=== PATIENT | female | born 1990 | race Caucasian/White ===

== ENCOUNTER 2017-11-28 10:15 | Inpatient (IN) | payer OTHER ==
[~2017-11-28] VITALS: Ht 165.1 cm; Wt 103.0 kg
[2017-11-28] VITALS (7 sets, daily range): BP systolic 99–117; BP diastolic 52–73
[~2017-11-28 10:15] MED LIST: FERREX 28 TABL1 EACH PO; PRENATAL TABLE1 EAC3 PO; VIBRAMYCIN100 MG PO
[2017-11-28 12:42] LABS: BASOPHIL (%) 0.2 % (0-1); EOSINOPHIL (%) 0.8 % (0-5); EOSINOPHIL COUNT 0.1 K/uL (0-0.3); HEMATOCRIT 36.2 % (36.0-46.0); HEMOGLOBIN 11.4 G/DL (11.9-15.5); IMMATURE GRANULOCYTE (%) 0.7 % (0.0-0.7); LYMPHOCYTE (%) 15.9 % (15-42); LYMPHOCYTE COUNT 1.6 K/uL (1.0-2.8); MCH 25.7 PG (29.0-34.0); MCHC 31.5 G/DL (30.0-36.0); MCV 81.7 FL (83-99); MONOCYTE (%) 4.9 % (3-12); MONOCYTE COUNT 0.5 K/uL (0-0.8); NEUTROPHIL (%) 77.5 % (45-76); NEUTROPHIL COUNT 7.7 K/uL (1.8-6.4); PLATELET COUNT 174 K/uL (156-360); RBC DIS.WIDTH-CV 15.4 % (11.8-14.6); RBC DIS.WIDTH-SD 45.8 % (39-53); RED BLOOD COUNT 4.43 M/uL (3.80-5.20); WHITE BLOOD COUNT 9.9 K/uL (4.1-10.2)
[2017-11-29 02:03] VITALS: BP 113/56
[2017-11-29 06:05] LABS: BASOPHIL (%) 0.2 % (0-1); EOSINOPHIL (%) 0.1 % (0-5); HEMOGLOBIN 9.7 G/DL (11.9-15.5); IMMATURE GRANULOCYTE (%) 0.7 % (0.0-0.7); LYMPHOCYTE (%) 16.4 % (15-42); LYMPHOCYTE COUNT 2.2 K/uL (1.0-2.8); MCH 26.4 PG (29.0-34.0); MCHC 32.3 G/DL (30.0-36.0); MCV 81.5 FL (83-99); MONOCYTE COUNT 0.7 K/uL (0-0.8); NEUTROPHIL (%) 77.6 % (45-76); NEUTROPHIL COUNT 10.5 K/uL (1.8-6.4); PLATELET COUNT 158 K/uL (156-360); RBC DIS.WIDTH-CV 15.6 % (11.8-14.6); RED BLOOD COUNT 3.68 M/uL (3.80-5.20); WHITE BLOOD COUNT 13.5 K/uL (4.1-10.2)
[2017-11-29 07:18] VITALS: BP 89/53
[2017-11-29 11:04] VITALS: BP 93/50
[2017-11-29 15:03] VITALS: BP 97/53
[2017-11-30 07:00] VITALS: BP 103/59
[2017-11-30 11:30] VITALS: BP 106/68
[2017-11-30 15:00] VITALS: BP 109/65
[2017-11-30 23:13] VITALS: BP 119/67
[2017-12-01 07:34] VITALS: BP 101/64
[2017-12-01] MEDS ORDERED: IBUPROFEN800 MG PO (11:55)
[2017-12-01] MEDS ORDERED: HYDROCODON-ACE1 EAC7 PO (11:55)
== END 2017-12-01 13:45 | disposition home or self-care (01) | DRG 765 ==
LOC: 2SOUTH 10:15 → 2WEST 11:10 → 2SOUTH 14:13 → 2WEST 12-01 13:45
PROVIDERS: Obstetrics & Gynecology Obstetrics
PROC: 10D00Z1 Extraction of Products of Conception, Low, Open Approach (ICD-10-PCS; principal; 2017-11-28)
DX: O32.1XX0 Maternal care for breech presentation, not applicable or unspecified (principal); O99.02 Anemia complicating childbirth; D62 Acute posthemorrhagic anemia; O99.214 Obesity complicating childbirth; E66.9 Obesity, unspecified; Z68.33 Body mass index [BMI] 33.0-33.9, adult; Z3A.40 40 weeks gestation of pregnancy; Z37.0 Single live birth
CPT/HCPCS: 85025; 86850; 86900; 86901; J0690; J1170; J1885; J2274; J2405; J3010; J7120